=== PATIENT | female | born 1960 | race Asian ===

== ENCOUNTER → 2016-12-27 | Outpatient (CLI) | payer BC ==
[~2016-12-27] MED LIST: CALCTAB65 PO; MULTTAB5 PO
== END | disposition home or self-care (01) ==
LOC: C.PAPS 08:52
PROVIDERS: ATTEND Obstetrics & Gynecology
DX: Z01.419 Encounter for gynecological examination (general) (routine) without abnormal findings (principal); Z78.0 Asymptomatic menopausal state

== ENCOUNTER → 2016-12-27 | Outpatient (CLI) | payer BC | END | disposition home or self-care (01) | LOC: C.LABSPEC 15:41 | PROVIDERS: ATTEND Obstetrics & Gynecology | DX: N89.8 Other specified noninflammatory disorders of vagina (principal) ==

== ENCOUNTER → 2017-01-03 | Outpatient (CLI) | payer BC ==
--- NOTE | 2017-01-03 08:59 | DIAGNOSTIC IMAGING REPORT ---
ABDOMEN LIMITED (US) HISTORY: 56 years-old Female LIVER LESION F/U follow-up study to assess liver lesion. COMPARISON: CT 10/29/2014 TECHNIQUE: Multiple real-time sonographic images of the abdominal right upper quadrant were obtained assessing grayscale appearance and color flow FINDINGS: Pancreas is partially obscured by bowel gas. Visualized portions are within normal limits. 0.7 cm hypoechoic circumscribed lesion of the left hepatic lobe with increased through transmission suggests hepatic cyst, likely correlating with the subcentimeter cystic lesion seen on study dated 10/29/2014 which appears stable. No additional hepatic mass lesions identified. No intrahepatic biliary ductal dilation. Cholelithiasis and gallbladder sludge redemonstrated without gallbladder wall thickening or pericholecystic fluid collections. Gallstones measure up to 1.1 cm within the gallbladder neck. Common bile duct measures 0.4 cm, within normal limits. Right kidney is unremarkable without hydronephrosis. IMPRESSION: 1. 0.7 cm hypoechoic circumscribed lesion of the left hepatic lobe suggests hepatic cyst, stable in size and appearance from 10/29/2014. 2. Cholelithiasis and gallbladder sludge without sonographic evidence of acute cholecystitis. No biliary ductal dilation. The above report was generated using voice recognition software. It may contain grammatical, syntax or spelling errors. Electronically signed by: Julio Murillo M.D. 01/03/2017 8:57 AM Dictated Date/Time: 01/03/2017 8:53 AM
== END | disposition home or self-care (01) ==
LOC: C.ULTR 08:08
PROVIDERS: ATTEND Family Medicine
DX: K76.9 Liver disease, unspecified (principal)

== ENCOUNTER → 2017-01-28 | Outpatient (CLI) | payer BC ==
--- NOTE | 2017-01-28 16:12 | DIAGNOSTIC IMAGING REPORT ---
HEAD WITHOUT CONTRAST (CT) CLINICAL HISTORY: 56 years-old Female presents with acute dizziness TECHNIQUE: Multiple axial CT images of the head were obtained without contrast. A dose lowering technique was utilized adhering to the principles of ALARA. CT DOSE: 679.75 mGycm COMPARISON: None. FINDINGS: There is no acute intracranial hemorrhage, territorial ischemia or focal parenchymal abnormality is identified. There is an arachnoid cyst measuring 4.3 x 3.3 x 3.2 cm which appears to be positioned within the body and atria of the right lateral ventricle seen on image 61 of series 102 causing 1.0 cm leftward displacement of the septum pellucidum. Additionally, there is mild asymmetric prominence of the right temporal horn lateral ventricle as seen on image 47 of series 102. No overt hydrocephalus. The calvarium is intact. The paranasal sinuses, mastoid air cells, and middle ear cavities are clear. IMPRESSION: 1. 4.3 cm arachnoid cyst appears to be present within the body and atria of the right lateral ventricle causing leftward displacement of the septum pellucidum. Additionally, there is mild asymmetric prominence of the right temporal horn lateral ventricle compared to the left which may reflect developing trapped ventricle without overt hydrocephalus at this time. Nonemergent follow-up brain MRI with neurosurgical consultation recommended. 2. No hemorrhage or territorial ischemia. The above report was generated using voice recognition software. It may contain grammatical, syntax or spelling errors. Electronically signed by: Julio Murillo M.D. 01/28/2017 4:10 PM Dictated Date/Time: 01/28/2017 3:47 PM
== END | disposition home or self-care (01) ==
LOC: C.CTS 15:24
PROVIDERS: ATTEND Family Medicine
DX: G93.0 Cerebral cysts (principal)

== ENCOUNTER → 2017-02-02 | Outpatient (CLI) | payer BC ==
[~2017-02-02] MED LIST changes: +GADAVIST IV PRN
--- NOTE | 2017-02-02 08:36 | DIAGNOSTIC IMAGING REPORT ---
MRI OF THE BRAIN WITHOUT AND WITH IV CONTRAST CLINICAL HISTORY: ABNORMAL CAT SCAN VENTRICULAR MASS COMPARISON STUDY: CT scan dated 01/28/2017 TECHNIQUE: MRI of the brain was performed from the vertex to the skull base utilizing various T1 and T2 weighted sequences. Following the IV administration of 5.5 mL of Gadavist contrast, additional enhanced images were obtained. FINDINGS: Sagittal T1, axial diffusion, proton density and T2 weighted axial, coronal FLAIR, and pre and post axial T1-weighted images were acquired. These were supplemented with post gadolinium coronal T1 weighted images. There is deformity of the right lateral ventricle. This is felt to be secondary to an intraventricular arachnoid cyst measuring 51 x 31 x 28 mm. There is 11 mm leftward displacement of the interventricular septum. Axial diffusion-weighted images reveal no evidence of acute or subacute infarction. There is mild asymmetric dilatation of the right temporal horn. There is no evidence of transependymal CSF flow. Proton density T2-weighted and FLAIR images reveal scattered foci of increased T2 signal within the white matter, likely on a small vessel basis. There are no abnormal flow voids. There is an incidental left frontal lobe developmental venous anomaly. IMPRESSION: 1. 51 x 31 x 28 mm intraventricular cyst located within the right lateral ventricle. This results in 11 mm of leftward displacement of the interventricular septum. There is mild asymmetric enlargement of the right temporal horn. 2. No evidence of acute or subacute infarction 3. Incidental left frontal lobe developmental venous anomaly Electronically signed by: Uri Holliday M.D. 02/02/2017 8:35 AM Dictated Date/Time: 02/02/2017 8:29 AM
== END | disposition home or self-care (01) ==
LOC: C.MRIBC 06:50
PROVIDERS: ATTEND Family Medicine
DX: R94.02 Abnormal brain scan (principal); G93.0 Cerebral cysts

== ENCOUNTER → 2017-02-21 | Outpatient (CLI) | payer BC ==
[~2017-02-21] MED LIST changes: -GADAVIST IV PRN
--- NOTE | 2017-02-22 07:47 | MAMMOGRAPHY REPORT ---
BILATERAL DIGITAL SCREENING MAMMOGRAM TOMOSYNTHESIS WITH CAD: 02/21/2017 CLINICAL HISTORY: Routine screening. Patient reported pain during this screening examination. TECHNIQUE: Breast tomosynthesis in addition to standard 2D mammography was performed. Current study was also evaluated with a Computer Aided Detection (CAD) system. COMPARISON: Comparison is made to exams dated: 02/19/2016 mammogram, 11/24/2015 ultrasound, 11/24/2015 mammogram, 02/17/2015 mammogram, 02/14/2014 mammogram, and 02/13/2013 mammogram - [facility]. BREAST COMPOSITION: There are scattered areas of fibroglandular density in both breasts. FINDINGS: A square-shaped pain marker overlies the upper outer quadrant of the left breast, denoting the area of pain pointed out by the patient. Based on prior mammograms images and prior reports, the patient has reported pain in this location previously, dating back to at least 2014, and no suspicio us mammographic or sonographic correlate was previously identified. No new suspicious mass, architec tural distortion or cluster of microcalcifications is seen. IMPRESSION: ACR BI-RADS CATEGORY 1: NEGATIVE 1. Stable bilateral mammograms, without mammographic evidence of malignancy. 2. The patient again reports pain in the upper outer quadrant of the left breast. Clinical correlat ion is again recommended to assess if the pain is chronic or if this is a new complaint. Based on pr ior available imaging, a pain marker was previously identified in the same location, suggesting chron ic nature. However, if there is a significant interval change based on patient history, targeted yan ast ultrasound would also be recommended. 3. Otherwise, a 1 year screening mammogram is recommended. The patient will receive written notification of the results. Approximately 10% of breast cancers are not detected with mammography. A negative mammographic report should not delay biopsy if a clinically suggestive mass is present. Josee Owens M.D. ay/:02/21/2017 21:27:26 Customer Contact Representative: Alva Ferguson, [facility] letter sent: Normal 1/2 BI-RADS Code: ACR BI-RADS Category 1: Negative
== END | disposition home or self-care (01) ==
LOC: C.MAMM 10:55
PROVIDERS: ATTEND Obstetrics & Gynecology
DX: Z12.31 Encounter for screening mammogram for malignant neoplasm of breast (principal)

== ENCOUNTER → 2017-05-23 | Outpatient (CLI) | payer OTHER ==
--- NOTE | 2017-05-23 17:12 | DIAGNOSTIC IMAGING REPORT ---
L ANKLE MIN 3 VIEWS ROUTINE HISTORY: 56 years-old Female INJURY OF L ANKLE acute left ankle pain COMPARISON: None available TECHNIQUE: 3 views of the left ankle FINDINGS: There is mild anterolateral soft tissue swelling of the ankle with a subtle acute nondisplaced fracture of the distal aspect fibula below the level of the ankle mortise. The distal tibia appears intact. Talar dome is unremarkable without osteochondral defect. Small joint effusion. IMPRESSION: Acute nondisplaced fracture of the lateral malleolus with soft tissue swelling and small joint effusion. The above report was generated using voice recognition software. It may contain grammatical, syntax or spelling errors. Electronically signed by: Julio Murillo M.D. 05/23/2017 5:10 PM Dictated Date/Time: 05/23/2017 5:09 PM
== END | disposition home or self-care (01) ==
LOC: C.RAD1850 16:49
PROVIDERS: ATTEND Family Medicine
DX: S99.912A Unspecified injury of left ankle, initial encounter (principal); X58.XXXA Exposure to other specified factors, initial encounter

== ENCOUNTER → 2017-06-14 | Outpatient (CLI) | payer OTHER ==
--- NOTE | 2017-06-14 09:48 | DIAGNOSTIC IMAGING REPORT ---
LEFT ANKLE 3 VIEWS CLINICAL HISTORY: Follow-up avulsion fracture. FINDINGS: 3 views of the left ankle are compared to study dated 05/23/2017. The skeletal structures appear osteopenic. No acute fracture is identified. There is a healing avulsion fracture along the inferior aspect of the lateral malleolus. The ankle mortise is intact. There is no joint effusion. The overlying soft tissues are normal in appearance. IMPRESSION: There is a healing avulsion fracture along the inferior aspect of the lateral malleolus. Electronically signed by: Humberto Eduardo M.D. 06/14/2017 9:47 AM Dictated Date/Time: 06/14/2017 9:46 AM
== END | disposition home or self-care (01) ==
LOC: C.RDSM 16:14
PROVIDERS: ATTEND Physician Assistant
DX: S82.822A Torus fracture of lower end of left fibula, initial encounter for closed fracture (principal); X58.XXXA Exposure to other specified factors, initial encounter

== ENCOUNTER → 2017-07-19 | Outpatient (CLI) | payer OTHER ==
--- NOTE | 2017-07-19 14:35 | DIAGNOSTIC IMAGING REPORT ---
L ANKLE MIN 3 VIEWS CLINICAL HISTORY: TORUS FX OF LOWER END OF LEFT FIBULA COMPARISON: 06/14/2017 DISCUSSION: Partial interval healing of the transverse fracture tip distal fibula. Bony alignment remains anatomic. Ankle mortise is appropriately aligned. Medial malleolus is unremarkable. There is no evidence for soft tissue swelling. IMPRESSION: Slight progressive healing of the transverse fracture distal fibula. Alignment remains anatomic. The above report was generated using voice recognition software. It may contain grammatical, syntax or spelling errors. Electronically signed by: Darshan Pierson M.D. 07/19/2017 2:33 PM Dictated Date/Time: 07/19/2017 2:32 PM
== END | disposition home or self-care (01) ==
LOC: C.RDSM 14:15
PROVIDERS: ATTEND Physician Assistant
DX: S82.822A Torus fracture of lower end of left fibula, initial encounter for closed fracture (principal); X58.XXXA Exposure to other specified factors, initial encounter

== ENCOUNTER → 2017-10-04 | Outpatient (CLI) | payer OTHER ==
[2017-10-04 09:14] LABS: HEMATOCRIT 38.6 % (37-47); MEAN CELL VOLUME 96.3 fL (80-100); MEAN CORPUSCULAR HEMOGLOBIN 32.4 pg (25-34); MEAN CORPUSCULAR HGB CONC 33.7 g/dl (32-36); MEAN PLATELET VOLUME 10.6 fL (7.4-10.4); PLATELET COUNT 150 K/uL (130-400); RED CELL DISTRIBUTION WIDTH CV 12.1 % (11.5-14.5); RED CELL DISTRIBUTION WIDTH SD 42.6 fL (36.4-46.3); WHITE BLOOD COUNT 4.36 K/uL (4.8-10.8)
== END | disposition home or self-care (01) ==
LOC: C.LAB1850 08:35
PROVIDERS: ATTEND Family Medicine
DX: M72.2 Plantar fascial fibromatosis (principal)

== ENCOUNTER → 2017-10-18 | Outpatient (CLI) | payer OTHER | END | disposition home or self-care (01) | LOC: C.MAMM 15:05 | PROVIDERS: ATTEND Family Medicine | DX: M85.80 Other specified disorders of bone density and structure, unspecified site (principal) ==

== ENCOUNTER → 2017-11-02 | Outpatient (CLI) | payer OTHER ==
[2017-11-02 10:16] LABS: BLOOD UREA NITROGEN 19 mg/dl (7-18); CALCIUM 9.2 mg/dl (8.5-10.1); CARBON DIOXIDE 26 mmol/L (21-32); CREATININE 0.82 mg/dl (0.60-1.20); GLUCOSE 88 mg/dl (70-99); POTASSIUM 4.2 mmol/L (3.5-5.1); SODIUM 144 mmol/L (136-145)
== END | disposition home or self-care (01) ==
LOC: C.LAB1850 08:54
PROVIDERS: ATTEND Family Medicine
DX: M85.80 Other specified disorders of bone density and structure, unspecified site (principal)